=== PATIENT | female | born 1955 | race Caucasian/White ===

== ENCOUNTER 2024-11-20 07:38 | Outpatient (CLI) | payer MEDICARE, BC | END 2024-11-20 07:39 | disposition home or self-care (01) | LOC: CSHMRI 07:38 | PROVIDERS: ATTEND Student in an Organized Health Care Education/Training Program | DX: M23.92 Unspecified internal derangement of left knee (principal); M25.462 Effusion, left knee; S83.282A Other tear of lateral meniscus, current injury, left knee, initial encounter; S83.242A Other tear of medial meniscus, current injury, left knee, initial encounter; M94.262 Chondromalacia, left knee; M94.8X6 Other specified disorders of cartilage, lower leg; M65.962 Unspecified synovitis and tenosynovitis, left lower leg; M67.462 Ganglion, left knee ==